=== PATIENT | female | born 1965 | race Caucasian/White ===

== ENCOUNTER 2017-08-13 18:51 | Emergency (ER) | payer SELFPAY ==
[~2017-08-13] VITALS: Ht 162.6 cm; Wt 68.2 kg
[~2017-08-13 18:51] MED LIST: TRIAMCINOLONE0.11 TP; XANAX0.5 MG PO; ZARTAN500 MG PO
[2017-08-13] MEDS ORDERED: BENAZEPRIL10 MG PO (19:00)
[2017-08-13 19:55] LABS: HEMOGLOBIN 11.1 g/dL (12.5-16.0); MEAN CELL VOLUME 92 fl (78-100); MEAN CORPUSCULAR HEMOGLOBIN 30 pg (27-31); MEAN CORPUSCULAR HGB CONC 33 g/dL (33-37); MEAN PLATELET VOLUME 9.1 fl (7.4-10.4); PLATELET COUNT 410 K/mm3 (130-400); RED CELL DISTRIBUTION WIDTH 13.9 % (11.5-14.5); WHITE BLOOD COUNT 13.5 K/mm3 (4.8-10.8)
[2017-08-13 19:57] LABS: BUN/CREATININE RATIO 15.5 (6.0-26.0)
[2017-08-13 20:22] LABS: LYMPHOCYTE 10 % (20-51); MONOCYTE 4 % (3-10); NEUTROPHILS 86 % (42-75)
[2017-08-13 20:46] LABS: URINE APPEARANCE CLOUDY; URINE COLOR YELLOW
[2017-08-13 20:47] LABS: URINE BILIRUBIN NEGATIVE (NEGATIVE); URINE BLOOD TRACE (NEGATIVE); URINE GLUCOSE NEGATIVE (NEGATIVE); URINE KETONE NEGATIVE (NEGATIVE); URINE LEUKOCYTE ESTERASE 1+ (NEGATIVE); URINE NITRATE NEGATIVE (NEGATIVE); URINE PROTEIN(semi-quant) NEGATIVE (NEGATIVE); URINE UROBILINOGEN NORMAL (NORMAL)
[2017-08-13 20:51] LABS: URINE WBC 16-30 /hpf (0-3)
[2017-08-13 20:52] LABS: URINE MUCUS PRESENT (NOT PRESENT)
[2017-08-13] MEDS ORDERED: BACTRIM DS TAB1 EACH PO (21:04)
[2017-08-13 21:13] VITALS: BP 124/80
== END 2017-08-13 21:13 | disposition home or self-care (01) ==
LOC: ED 18:51
PROVIDERS: Physician Assistant
DX: N39.0 Urinary tract infection, site not specified (principal); N92.0 Excessive and frequent menstruation with regular cycle; N94.6 Dysmenorrhea, unspecified; Z98.51 Tubal ligation status; I10 Essential (primary) hypertension; F17.210 Nicotine dependence, cigarettes, uncomplicated; F41.9 Anxiety disorder, unspecified; G43.909 Migraine, unspecified, not intractable, without status migrainosus; Z86.19 Personal history of other infectious and parasitic diseases
CPT/HCPCS: J1885